=== PATIENT | female | born 1990 | race Caucasian/White ===

== ENCOUNTER → 2023-05-28 | Outpatient (CLI) | payer BC, SELFPAY ==
[2023-05-28 11:44] LABS: Vitamin D,25 Hydroxy 28.6 ng/mL
[2023-05-28 14:06] LABS: Cholesterol 212 mg/dL (200); Estradiol 114.7 pg/mL; Glucose 99 mg/dL (74-106); High Density Lipoprotein 66 mg/dL; T4 Free Direct 0.69 ng/dL (0.76-1.46); Thyroid Stim Hormone (TSH) 2.38 uIU/mL (0.358-3.74); Triglycerides 79 mg/dL; Very Low Density Lipoprotein 16 mg/dL (5-40)
[2023-05-31 14:07] LABS: Anti-Mullerian Hormone,Serum 5.33 ng/mL (.); Thyroid Peroxidase AB 15 IU/mL (0-34)
[2023-06-02 11:09] LABS: HPV APTIMA, High Risk Positive (Negative)
== END | disposition home or self-care (01) ==
PROVIDERS: Advanced Practice Midwife; Referring Provider Obstetrics & Gynecology; Visit Provider Obstetrics & Gynecology
DX: Z13.220 Encounter for screening for lipoid disorders (principal); Z12.4 Encounter for screening for malignant neoplasm of cervix; N93.9 Abnormal uterine and vaginal bleeding, unspecified; Z12.31 Encounter for screening mammogram for malignant neoplasm of breast; Z13.1 Encounter for screening for diabetes mellitus; Z13.29 Encounter for screening for other suspected endocrine disorder
CPT/HCPCS: 36415; 80061; 82306; 82627; 82670; 82947; 83516; 84439; 84443; 86376; 87624; 88175; 82626; G0145

== ENCOUNTER → 2023-11-17 | Outpatient (CLI) | payer BC, MEDICAID, SELFPAY ==
--- OUTSIDE RECORDS SUMMARY | 2023-11-17 19:34 | XMS RPT_ITS | CCD ---
Author Name Unknown Address [address] [place] [address] Organization [facility] Care Team Providers Care Budget Director Name Role Phone SUSY SOLER Attending Unavailabl e GLENN LANDA Referring Unavail able GLENN LANDA Admitting Unavail able Sheridan Sauer MD [facility] Provide r Sheridan Sauer MD [facility] Provide r Sheridan Sauer MD Unavailable [phone] Sheridan Sauer Unavailable [place], Kathryn Unavailable Unavailable Sheridan Sauer MD [facility] Provide r SHERIDAN SAUER [facility] Unavail able BOBO RIVERA Attending Unavailab SHERIDAN Hopkins [facility] Unavail able BOBO RIVERA Attending Unavailab Sheridan Hopkins MD Maynor [facility] Provide r Kimberly Howard Unavailable Unavailable Sheridan Sauer MD Unavailable [phone] Feli Field, Dr. Schuylre Avila Attending Stephanie shaynailable Feli Field, Dr. Schuyler Avila Referring Stephanie shaynailable Feli Field, Dr. Schuyler Avila Admitting Stephanie vailable Kimberly Howard Attending Unavailable SHERIDAN SAUER Primary Care Unavail able BRODY BILLY Attending Unavailable SHERIDAN SAUER Primary Care Unavail able SHERIDAN SAUER Admitting Unavail able SHERIDAN SAUER Attending Unavail able SHERIDAN SAUER Primary Care Unavail able SHERIDAN SAUER Primary Care Unavail able DEANA CASAS Attending Unavailable Medications Current Medications Medication Drug Class(es) Dates Sig (Normalized) Sig (Original) [id number] 200 actuat albuterol 0.09 mg/actuat metered dose inhaler (9 sources) beta2-Adrenergic Agonist Start: 08-29-2022 End: 09-07-2022 take 2 puff(s) by inhalation every four hours as needed for wheezing albuterol 90 mcg/inh inhalation aerosol ; 2 puff(s) inhaled every 4 hours, As Needed for wheezing or shortness of breath Quantity: 1 Refills: 0 Ordered: 29-Aug-2022 Kimberly Howard Start: 29-Aug-2022 End: 07-Sep-2022 Generic Substitution Allowed Comments: For inhalation only.It is very important that you take or use this exactly as directed. Do not skip doses or discontinue unless directed by your doctor.Obtain medical advice before taking any non-prescription drugs as some may affect the action of this medication.Shake well before use. Completed/Discontinued Medications Medication Drug Class(es) Dates Sig (Normalized) Sig (Original) levonorgestrel 0.776545 mg/hr intrauterine system (5 sources) Progestin, Progestin-containing Intrauterine Device End: 11-06-2021 levonorgestreL (MIRENA) 20 mcg/24 hours (6 yrs) 52 mg IUD 1 each by Intrauterine route once . 0 11/06/2021 Discontinued (Patient's Request) phentermine hydrochloride 37.5 mg oral tablet (4 sources) Sympathomimetic Amine Anorectic Start: 05-08-2022 End: 07-03-2023 take 1 tablet by mouth once daily phentermine (ADIPEX-P) 37.5 mg tablet Take 1 (one) tablet (37.5 mg total) by mouth daily . 0 05/08/2022 07/03/2023 Discontinued (Therapy completed) Problems Active Problems Problem Classification Problem Date Documented Da te Episodic/Chronic Acute and chronic tonsillitis (4 sources) Hypertrophy of tonsils with hypertrophy of adenoids; Translations: [Chronic tonsillitis and adenoiditis] Onset: 02-25-2023 Chronic Anxiety disorders (16 sources) Anxiety; Translations: [Anxiety disorder, unspecified] Onset: 04-03-2021 Chronic Coagulation and hemorrhagic disorders (11 sources) Homozygous Factor V Leiden mutation; Translations: [Activated protein C resistance] Onset: 06-29-2013 04-03-2021 Chronic Contraceptive and procreative management (2 sources) Patient encounter status; Translations: [Encounter for removal of intrauterine contraceptive device] Episodic Female infertility (1 source) Anovulation; Translations: [Female infertility associated with anovulation] Chronic Menstrual disorders (1 source) Irregular periods; Translations: [Irregular menstruation, unspecified] Chronic Mood disorders (16 sources) Recurrent major depressive episodes, mild ; Translations: [Major depressive disorder, recurrent, mild] Onset: 04-03-2021 Chronic Other upper respiratory disease (2 sources) Nasal congestion; Translations: [Other disease of nasal cavity and sinuses] 08-29-2022 Episodic Phlebitis; thrombophlebitis and thromboembolism (5 sources) Acute embolism and thrombosis of left peroneal vein; Translations: [Acute venous embolism and thrombosis of deep vessels of distal lower extremity] Onset: 03-02-2023 Episodic Residual codes; unclassified (1 source) History of clinical finding in subject; Translations: [Personal history of other specified conditions] 07-03-2023 Episodic Unclassified (2 sources) FEVER AND SORE THROAT 10-03-2021 Past or Other Problems Problem Classification Problem Date Documented Da te Episodic/Chronic Fever of unknown origin (1 source) Fever, unspecified; Translations: [Fever, unspecified] Onset: 08-29-2022 Episodic Other upper respiratory disease (1 source) Nasal congestion; Translations: [Nasal congestion] Onset: 08-29-2022 Episodic Other upper respiratory infections (3 sources) Viral upper respiratory tract infection; Translations: [Acute upper respiratory infections of unspecified site] Onset: 08-29-2022 10-03-2021 Episodic Screening and history of mental health and substance abuse codes (1 source) Personal history of nicotine dependence; Translations: [Personal history of nicotine dependence] Onset: 08-29-2022 Episodic Results Test Name Value Interpretation Reference Range Facil ity Vital Signs Date Time Vital Sign Value Performing Clinician Facility 07-03-2023 09:43-0400 Body height 162.6 cm Sheridan Sauer MD Work Phone: [facility] 07-03-2023 09:43-0400 Body mass index (BMI) [Ratio] 40.1 kg/m2 Sheridan Sauer MD Work Phone: [facility] 07-03-2023 09:43-0400 Body temperature 98.71 [degF] Sheridan Sauer MD Work Phone: [facility] 07-03-2023 09:43-0400 Body weight 105.96 kg Sheridan Sauer MD Work Phone: [facility] 07-03-2023 09:43-0400 Diastolic blood pressure 82 mm[Hg] Sheridan Sauer MD Work Phone: [facility] 07-03-2023 09:43-0400 Heart rate 73 /min Sheridan Sauer MD Work Phone: [facility] 07-03-2023 09:43-0400 Respiratory rate 16 /min Sheridan Sauer MD Work Phone: [facility] 07-03-2023 09:43-0400 SaO2% (BldA) [Mass fraction] 97 % Sheridan Sauer MD Work Phone: [facility] 07-03-2023 09:43-0400 Systolic blood pressure 121 mm[Hg] Sheridan Sauer MD Work Phone: [facility] 08-29-2022 12:17-0500 Body height 162 cm Sheridan Sauer Other Phone: [facility] 08-29-2022 12:17-0500 Body temperature 98.06 [degF] Sheridan Sauer Other Phone: [facility] 08-29-2022 12:17-0500 Diastolic blood pressure 81 mm[Hg] Sheridan Sauer Other Phone: [facility] 08-29-2022 12:17-0500 Heart rate 100 /min Sheridan Sauer Other Phone: [facility] 08-29-2022 12:17-0500 Respiratory rate 18 /min Sheridan Sauer Other Phone: [facility] 08-29-2022 12:17-0500 SaO2% (BldA) [Mass fraction] 96 % Sheridan Sauer Other Phone: [facility] 08-29-2022 12:17-0500 Systolic blood pressure 115 mm[Hg] Sheridna Sauer Other Phone: [facility] 11-06-2021 15:05-0500 Body mass index (BMI) [Ratio] 39.01 kg/m2 Raghavendra Talley MD Work Phone: [facility] 11-06-2021 15:05-0500 Body weight 99.88 kg Raghavendra Talley MD Work Phone: [facility] 11-06-2021 15:05-0500 Diastolic blood pressure 81 mm[Hg] Raghavendra Talley MD Work Phone: [facility] 11-06-2021 15:05-0500 Heart rate 71 /min Raghavendra Talley MD Work Phone: [facility] 11-06-2021 15:05-0500 Systolic blood pressure 124 mm[Hg] Raghavendra Talley MD Work Phone: [facility] 10-03-2021 16:04-0500 Body height 160 cm Sheridan Sauer Other Phone: [facility] 10-03-2021 16:04-0500 Body temperature 98.6 [degF] Sheridan Sauer Other Phone: [facility] 10-03-2021 16:04-0500 Diastolic blood pressure 84 mm[Hg] Sheridan Sauer Other Phone: [facility] 10-03-2021 16:04-0500 Heart rate 80 /min Sheridan Sauer Other Phone: [facility] 10-03-2021 16:04-0500 Respiratory rate 14 /min Sheridan Sauer Other Phone: [facility] 10-03-2021 16:04-0500 SaO2% (BldA) [Mass fraction] 98 % Sheridan Sauer Other Phone: [facility] 10-03-2021 16:04-0500 Systolic blood pressure 133 mm[Hg] Sheridan Sauer Other Phone: [facility] 05-28-2021 10:24-0400 Body mass index (BMI) [Ratio] 36.24 kg/m2 Raghavendra Talley MD Work Phone: [facility] 05-28-2021 10:24-0400 Body weight 92.81 kg Raghavendra Talley MD Work Phone: [facility] 05-28-2021 10:24-0400 Diastolic blood pressure 86 mm[Hg] Raghavendra Talley MD Work Phone: [facility] 05-28-2021 10:24-0400 Heart rate 88 /min Raghavendra Talley MD Work Phone: [facility] 05-28-2021 10:24-0400 Systolic blood pressure 136 mm[Hg] aRghavendra Talley MD Work Phone: [facility] 04-03-2021 13:51-0400 Body height 160 cm Sheridan Sauer MD Work Phone: [facility] 04-03-2021 13:51-0400 Body mass index (BMI) [Ratio] 37.55 kg/m2 Sheridan Sauer MD Work Phone: [facility] 04-03-2021 13:51-0400 Body temperature 97.7 [degF] Sheridan Sauer MD Work Phone: [facility] 04-03-2021 13:51-0400 Body weight 96.16 kg Sheridan Sauer MD Work Phone: [facility] 04-03-2021 13:51-0400 Diastolic blood pressure 85 mm[Hg] Sheridan Sauer MD Work Phone: [facility] 04-03-2021 13:51-0400 Heart rate 64 /min Sheridan Sauer MD Work Phone: [facility] 04-03-2021 13:51-0400 Respiratory rate 16 /min Sheridan Sauer MD Work Phone: [facility] 04-03-2021 13:51-0400 SaO2% (BldA) [Mass fraction] 98 % Sheridan Sauer MD Work Phone: [facility] 04-03-2021 13:51-0400 Systolic blood pressure 124 mm[Hg] Sheridan Sauer MD Work Phone: [facility] Encounters Encounter Date Encounter Type Care Provider Facility Start: 07-03-2023 End: 07-03-2023 Patient encounter status Sheridan Sauer MD Work Phone: [facility] Work Phone: Start: 07-03-2023 End: 07-03-2023 Periodic preventive med est patient 18-39 yrs Sheridan Sauer MD Work Phone: [facility] Procedures Date Procedure Procedure Detail Performing Clinician Start: 05-28-2021 Removal of intrauter ine device Raghavendra Talley MD Work Phone: Plan of Treatment Date Care Activity Detail Author Start: 2056 Pneumococcal Vaccine: Ped or At-Risk (2 of 2 - PPSV23) Pneumococcal Vaccine: Ped or At-Risk (2 of 2 - PPSV23) [facility] Start: 08-02-2025 Tetanus vaccination Tetanus: Every 10yrs [facility] Start: 07-03-2024 History and physical examination, annual for health maintenance Wellness Visit [facility] Start: 07-03-2023 End: 07-03-2023 Patient encounter procedure 07/03/2023 9:45 AM EDT Office Visit [facility] [address] [place] [address] Sheridan Sauer MD [address] [address] [facility] Start: 05-22-2023 Influenza vaccination Sequential Influenza Vaccine (#1) [facility] Start: 05-16-2023 History and physical examination, annual for health maintenance Wellness Visit [facility] Start: 05-22-2022 Influenza vaccination [facility] Start: 04-03-2022 History and physical examination, annual for health maintenance Wellness Visit [facility] Start: 03-28-2022 End: 03-28-2022 Patient encounter procedure 03/28/2022 Office Visit Primary Care Sheridan Sauer MD [address] [address] [facility] Start: 02-01-2022 Depression Remission Assessment (PHQ9) Depression Remission Assessment (PHQ9) [facility] Start: 05-22-2021 Influenza vaccination Sequential Influenza Vaccine (#1) [facility] Start: 03-19-2018 Pneumococcal Vaccine: Ped or At-Risk (2 - PCV) Pneumococcal Vaccine: Ped or At-Risk (2 - PCV) [facility] Start: 2012 Screening for malignant neoplasm of cervix Pap Smear [facility] Start: 2009 Hepatitis C screening Hepatitis C Screening [facility] Start: 2006 HIV screening HIV Screening [facility] Start: 2003 COVID-19 Vaccine (1) COVID-19 Vaccine (1) [facility] Start: 1996 COVID-19 Vaccine (#1) COVID-19 Vaccine (#1) [facility] Start: 1996 COVID-19 Vaccine (1) COVID-19 Vaccine (1) [facility] Start: 01-07-1992 COVID-19 Vaccine (#1) COVID-19 Vaccine (#1) [facility] Start: 1991 Screening for malignant neoplasm of cervix Pap Smear [facility] End: 08-12-2023 Glucose [Mass/volume] in Serum or Plasma Glucose Lab Routine Routine medical exam 1 Occurrences starting 08/12/2022 until 08/12/2023 [facility] Immunizations Immunization Date Immunization Notes Care Provider Linh peace 08-21-2020 influenza, injectabl e, quadrivalent, preservative free Sheridan Sauer MD Work Phone: [facility] 06-16-2019 Influenza, injectabl e, Madin Madison Canine Kidney, preservative free, quadrivalent Sheridan Sauer MD Work Phone: [facility] 06-29-2018 influenza, injectabl e, quadrivalent, contains preservative Sheridan Sauer MD Work Phone: [facility] 03-19-2017 pneumococcal polysac charide vaccine, 23 valent Sheridan Sauer MD Work Phone: [facility] 08-02-2015 tetanus toxoid, redu fatuma diphtheria toxoid, and acellular pertussis vaccine, adsorbed Sheridan Sauer MD Work Phone: [facility] 07-10-2015 influenza, injectabl e, quadrivalent, contains preservative Sheridan Sauer MD Work Phone: [facility] 03-31-2014 tetanus toxoid, redu fatuma diphtheria toxoid, and acellular pertussis vaccine, adsorbed Sheridan Sauer MD Work Phone: [facility] 06-22-2012 varicella virus vaccine Elaine Sauer MD Work Phone: [facility] 05-14-2012 varicella virus vaccine Elaine Sauer MD Work Phone: [facility] 05-12-2012 influenza virus vacc ine, whole virus Sheridan Sauer MD Work Phone: [facility] 10-05-2007 tetanus toxoid, redu fatuma diphtheria toxoid, and acellular pertussis vaccine, adsorbed Sheridan Sauer MD Work Phone: [facility] 08-19-2002 TD(adult) unspecifie d formulation Sheridan Sauer MD Work Phone: [facility] 07-26-1997 measles, mumps and r ubella virus vaccine Sheridan Sauer MD Work Phone: [facility] 08-17-1996 diphtheria, tetanus toxoids and acellular pertussis vaccine Sheridan Sauer MD Work Phone: [facility] 08-17-1996 diphtheria, tetanus toxoids and acellular pertussis vaccine, unspecified formulation Sheridan Sauer MD Work Phone: [facility] 08-17-1996 poliovirus vaccine, unspecified formulation Sheridan Sauer MD Work Phone: [facility] 01-24-1994 hepatitis B vaccine, pediatric or pediatric/adolescent dosage Sheridan Sauer MD Work Phone: [facility] 08-28-1993 hepatitis B vaccine, pediatric or pediatric/adolescent dosage Sheridan Sauer MD Work Phone: [facility] 07-24-1993 hepatitis B vaccine, pediatric or pediatric/adolescent dosage Sheridan Sauer MD Work Phone: [facility] 01-23-1993 diphtheria, tetanus toxoids and acellular pertussis vaccine Sheridan Sauer MD Work Phone: [facility] 01-23-1993 diphtheria, tetanus toxoids and acellular pertussis vaccine, unspecified formulation Sheridan Sauer MD Work Phone: [facility] 01-23-1993 poliovirus vaccine, unspecified formulation Sheridan Sauer MD Work Phone: [facility] 10-13-1992 haemophilus influenz ae type b vaccine, conjugate unspecified formulation Sheridan Sauer MD Work Phone: [facility] 10-13-1992 measles, mumps and r ubella virus vaccine Sheridan Sauer MD Work Phone: [facility] 02-22-1992 diphtheria, tetanus toxoids and acellular pertussis vaccine Sheridan Sauer MD Work Phone: [facility] 02-22-1992 diphtheria, tetanus toxoids and acellular pertussis vaccine, unspecified formulation Sheridan Sauer MD Work Phone: [facility] 02-22-1992 haemophilus influenz ae type b vaccine, conjugate unspecified formulation Sheridan Sauer MD Work Phone: [facility] 1991 diphtheria, tetanus toxoids and acellular pertussis vaccine Sheridan Sauer MD Work Phone: [facility] 1991 diphtheria, tetanus toxoids and acellular pertussis vaccine, unspecified formulation Sheridan Sauer MD Work Phone: [facility] 1991 haemophilus influenz ae type b vaccine, conjugate unspecified formulation Sheridan Sauer MD Work Phone: [facility] 1991 poliovirus vaccine, unspecified formulation Sheridan Sauer MD Work Phone: [facility] 1991 diphtheria, tetanus toxoids and acellular pertussis vaccine Sheridan Sauer MD Work Phone: [facility] 1991 diphtheria, tetanus toxoids and acellular pertussis vaccine, unspecified formulation Sheridan Sauer MD Work Phone: [facility] 1991 haemophilus influenz ae type b vaccine, conjugate unspecified formulation Sheridan Sauer MD Work Phone: [facility] 1991 poliovirus vaccine, unspecified formulation Sheridan Sauer MD Work Phone: [facility] Payers Date Payer Category Payer Unknown [id number] 2020 Unknown [id number] 2020 Unknown 2020 Unknown [id number] 2019 Medicaid [employer] [place] [id number] 2019-Present [phone] [address] [address] [place] [address] [id number] 2019 Medicaid [id number] 1991 Unknown [id number] 1991 Unknown [id number] 1991 Unknown [id number] 1991 Unknown [id number] 1991 Unknown [id number] 1991 Unknown [id number] 1991 Unknown [id number] 1991 Unknown [id number] Social History Date Type Detail Facility Start: 09-21-2015 End: 02-25-2022 Tobacco smoking status UTIS Current some day smoker [facility] Start: 09-21-2015 History of tobacco use Cigarette Smoker [facility] Start: 04-03-2021 End: 02-25-2022 Tobacco use and exposure Never used [facility] Start: 04-03-2021 End: 03-02-2023 Alcohol intake Current drinker of alcohol (finding) [facility] Start: 04-03-2021 End: 07-03-2023 Alcohol intake [facility] Start: 04-03-2021 Alcohol Comment socially [facility] Start: 1991 Sex Assigned At Not on file [facility] Start: 02-16-2022 End: 02-26-2022 Exposure to SARS-CoV-2 (event) Not sure [facility] Tobacco smoking consumption unknown [facility] Start: 04-03-2021 End: 03-02-2023 Tobacco use panel [facility] Adult Depression Screening Assessment 19 [facility] Start: 04-03-2021 Gender identity Identifies as female gender (finding) [facility] Start: 04-03-2021 Sexual orientation Heterosexual (finding) [facility] Clinical Notes 12-05-2020 to 07-03-2023 Sheridan Sauer MD - 07/03/2023 10:07 AM Samira Talley MD - 11/06/2021 6:14 PM Vicente Talley MD - 05/28/2021 1:35 PM Samira Talley MD - 05/28/2021 1:32 PM EDT Note Date & Type Note Facility 07-03-2023 History of Present illness Narrative Images from the original note were not included. Subjective Patient ID: Lorri Chiu is a 32 y.o. female. 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 Review of Systems Constitutional: Negative for chills, diaphoresis and fever. HENT: Negative for congestion and sinus pain. Eyes: Negative for redness. Respiratory: Negative for cough, shortness of breath and wheezing. Cardiovascular: Negative for chest pain. Gastrointestinal: Negative for diarrhea, nausea and vomiting. Endocrine: Negative for polydipsia. Genitourinary: Negative for frequency and hematuria. Musculoskeletal: Negative for back pain. Neurological: Negative for weakness and headaches. Psychiatric/Behavioral: Negative for confusion. Objective Physical Exam Vitals reviewed. Constitutional: General: She is awake. Appearance: Normal appearance. She is well-developed. HENT: Head: Normocephalic and atraumatic. Right Ear: Tympanic membrane and ear canal normal. Left Ear: Tympanic membrane and ear canal normal. Nose: Nose normal. Eyes: General: Lids are normal. Extraocular Movements: Extraocular movements intact. Pupils: Pupils are equal, round, and reactive to light. Cardiovascular: Rate and Rhythm: Normal rate and regular rhythm. Heart sounds: S1 normal and S2 normal. No murmur heard. No friction rub. No gallop. Pulmonary: Effort: Pulmonary effort is normal. No tachypnea. Breath sounds: Normal breath sounds. No stridor or decreased air movement. No wheezing, rhonchi or rales. Neurological: Mental Status: She is alert. Gait: Gait is intact. Psychiatric: Behavior: Behavior is cooperative. Assessment/Plan: Diagnoses and all orders for this visit: Routine medical exam Patient is up-to-date on labs no need for repeat at this time TSH normal free T4 just mildly low would not do any treatments at this time Anxiety - citalopram (CELEXA) 40 MG tablet; Take 1 (one) tablet (40 mg total) by mouth daily . - buPROPion (WELLBUTRIN XL) 150 MG 24 hr tablet; Take 1 (one) tablet (150 mg total) by mouth daily . Mild episode of recurrent major depressive disorder (HCC) - citalopram (CELEXA) 40 MG tablet; Take 1 (one) tablet (40 mg total) by mouth daily . - buPROPion (WELLBUTRIN XL) 150 MG 24 hr tablet; Take 1 (one) tablet (150 mg total) by mouth daily . Acute deep vein thrombosis (DVT) of left peroneal vein (HCC) - apixaban (Eliquis) 5 mg Tab; Take 1 (one) tablet (5 mg total) by mouth 2 (two) times a day . H/O motion sickness - scopolamine (TRANSDERM-SCOP) 1 mg over 3 days patch; Place 1 (one) patch on the skin every 72 hours for 6 days . Sheridan Sauer M.D. For any new medications prescribed today, patient was educated about indications for the medication, how to take the medication and potential side effects of the medications. documented in this encounter [facility] 02-25-2023 Note PROCEDURE DETAILS Preoperative Diagnosis: Tonsillitis and adenoiditis, chronic, J35.03 Hyperplasia of tonsils and adenoids, J35.3 Postoperative Diagnosis: Tonsillitis and adenoiditis, chronic, J35.03 Hyperplasia of tonsils and adenoids, J35.3 Surgeon: Schuyler Edmond Resident/Fellow/Other Analyzer Sales: None of these were associated with this case Procedure: 1. T&A Anesthesia: No anesthesiologist associated with this case Estimated Blood Loss: minimal Findings: Severe hypertrophy Operative Report: CLINICAL NOTE:The patient is a 32-year-old female with a history of with a history of chronic adenotonsillitis and adenotonsillar hypertrophy. OPERATIVE NOTE: The patient was taken to the operating room and placed supine on the operating room table and after administration of general endotracheal anesthesia, the table was turned 90 degrees, head drape was applied and the McIvor mouth gag was inserted and suspended from the Garvey stand. A red rubber catheter was placed through the nose and out the oral cavity to suspend a normal palate. A large adenoid pad was removed from the nasopharynx using curettes and Woodbury forceps and the nasopharynx was packed with Bismuth subgallate epinephrine soaked packs. Attention was then directed to the tonsillectomy and the right tonsil was grasped at its superior pole and medialized. A mucosal incision was made with the Coblation wand and the tonsillar capsule was identified. The tonsil was removed along the capsular plane and Bismuth was smeared into the tonsillar fossa. The nasopharyngeal packs were replaced. Attention was then directed to the opposite tonsil. The procedure was repeated in an identical fashion with identical clinical findings. The nasopharyngeal packs were removed and hemostasis was found to have been achieved. The nasopharynx and oral cavity were then irrigated with normal saline. The patient was then reversed from anesthesia, extubated, and transferred to the recovery room (PACU) in satisfactory condition. The patient tolerated the procedure well with minimal blood loss. Attestation: Note Completion: Attending AttestationI performed the procedure without a resident Electronic Signatures: Schuyler Edmond) (Signed 25-Feb-2023 14:35) Authored: Post-Operative Note, Chart Review, Note Completion Last Updated: 25-Feb-2023 14:35 by Schuyler Edmond) [facility] 02-25-2023 Note History & Physical R eviewed: /Lactating: Are You no Are You Currently Breastfeedingno I have reviewed the History and Physical dated: 19-Feb-2023 History and Physical reviewed and relevant findings noted. Patient examined to review pertinent physical findings.: No significant changes Home Medications Reviewed: no changes noted Allergies Reviewed: no changes noted ERAS (Enhanced Recovery After Surgery): ERAS Patient: no Consent: COVID-19 Consent: COVID-19 Risk ConsentSurgeon has reviewed chase risks related to the risk of memo COVID-19 and if they contract COVID-19 what the risks are. Electronic Signatures: Schuyler Edmond) (Signed 25-Feb-2023 13:26) Authored: History & Physical Reviewed, ERAS, Consent, Note Completion Last Updated: 25-Feb-2023 13:26 by Schuyler Edmond) [facility] 11-06-2021 History of Present illness Narrative Subjective Patient ID: Lorri Chiu is a 31 y.o. female. Patient here with concerns about fertility. She had her IUD removed in May 2021, her menstrual cycles have been very irregular since the removal. For the first couple of months her cycles were every 23-25 days and the last 2 cycles have been around 40 days apart. She had to be placed on clomid in the past after trying for 4 years without success. She did conceive on clomid. Wants to try clomid again. The following portions of the patient's history were reviewed and updated as appropriate: allergies, current medications, past family history, past medical history, past social history, past surgical history and problem list. Review of Systems Constitutional: Negative for appetite change and fever. HENT: Negative for nosebleeds. Eyes: Negative for photophobia. Respiratory: Negative for cough and shortness of breath. Cardiovascular: Negative for chest pain and leg swelling. Gastrointestinal: Negative for abdominal pain, constipation, diarrhea, nausea and vomiting. Endocrine: Negative for cold intolerance and polydipsia. Genitourinary: Positive for menstrual problem. Negative for difficulty urinating, dysuria, frequency and urgency. Musculoskeletal: Negative for joint swelling. Skin: Negative for rash. Neurological: Negative for dizziness. Hematological: Does not bruise/bleed easily. Psychiatric/Behavioral: Negative for suicidal ideas. All other systems reviewed and are negative. Objective Physical Exam Constitutional: Appearance: She is well-developed. Pulmonary: Effort: Pulmonary effort is normal. Abdominal: Palpations: Abdomen is soft. Musculoskeletal: General: Normal range of motion. Skin: General: Skin is warm and dry. Neurological: Mental Status: She is alert and oriented to person, place, and time. Psychiatric: Behavior: Behavior normal. Thought Content: Thought content normal. Judgment: Judgment normal. Assessment/Plan: Diagnoses and all orders for this visit: Irregular menses We discussed the irregular cycles, variations after having IUD removed. She doesn't have symptoms of ovulation that she has had in the past. We discussed options for regulating her cycles. She wishes to try to conceive, wants to start on clomid to help. Anovulation We reviewed clomid dosing, instructions, and success rates. She was given the clomid calendar and instructions. We will start clomid with her next menses. Instructed on progesterone level to assess ovulation status. Patient understands and agrees. documented in this encounter [facility] 05-28-2021 History of Present illness Narrative Associated Order(s): IUD Removal IUD Removal Date/Time: 05/28/2021 1:35 PM Performed by: Raghavendra Talley MD Authorized by: Raghavendra Talley MD Consent: Consent obtained: Verbal Consent given by: Patient Procedure risks and benefits discussed: yes Patient questions answered: yes Patient agrees, verbalizes understanding, and wants to proceed: yes Instructions and paperwork completed: yes Mastic protocol: Patient states understanding of procedure being performed: yes Relevant documents present and verified: yes Required blood products, implants, devices, and special equipment available: yes Procedure: Removed with no complications: yes Subjective Patient ID: Lorri Chiu is a 30 y.o. female. Here for IUD removal. She has had it in place for about 5 years. She wishes to conceive. The following portions of the patient's history were reviewed and updated as appropriate: allergies, current medications, past family history, past medical history, past social history, past surgical history and problem list. Review of Systems Constitutional: Negative for appetite change and fever. HENT: Negative for nosebleeds. Eyes: Negative for photophobia. Respiratory: Negative for cough and shortness of breath. Cardiovascular: Negative for chest pain and leg swelling. Gastrointestinal: Negative for abdominal pain, constipation, diarrhea, nausea and vomiting. Endocrine: Negative for cold intolerance and polydipsia. Genitourinary: Negative for difficulty urinating, dysuria, frequency and urgency. Musculoskeletal: Negative for joint swelling. Skin: Negative for rash. Neurological: Negative for dizziness. Hematological: Does not bruise/bleed easily. Psychiatric/Behavioral: Negative for suicidal ideas. All other systems reviewed and are negative. Objective Physical Exam Vitals reviewed. Exam conducted with a chief development officer present. Constitutional: Appearance: She is well-developed. Pulmonary: Effort: Pulmonary effort is normal. Abdominal: Palpations: Abdomen is soft. Genitourinary: Comments: IUD strings seen Musculoskeletal: General: Normal range of motion. Skin: General: Skin is warm and dry. Neurological: Mental Status: She is alert and oriented to person, place, and time. Psychiatric: Behavior: Behavior normal. Thought Content: Thought content normal. Judgment: Judgment normal. Assessment/Plan: Diagnoses and all orders for this visit: Encounter for removal of intrauterine contraceptive device (IUD) IUD removed. Discussed return of fertility, when to return if thinks she is . documented in this encounter [facility] 04-03-2021 History of Present illness Narrative Images from the original note were not included. Subjective Patient ID: Lorri Chiu is a 30 y.o. female. Not seen couple of years, bt was Dr. feliz in [place] last Patient here for initial visit overall she is doing well she has new insurance and a new position at [employer] and is here for checkup has not had lab work done in quite some time other than a hemoglobin A1c. She does need to get in with a graphic design specialist as she has a Mirena that does need to be removed She has a history of anxiety and depression was on citalopram and Wellbutrin states that she was taken the twice a day Wellbutrin and sometimes had difficulty with the second dose but would like to try the once a day She does smoke occasionally and is trying to quit The following portions of the patient's history were reviewed and updated as appropriate: allergies, current medications, past family history, past medical history, past social history, past surgical history and problem list. Review of Systems Constitutional: Negative for chills and fever. HENT: Negative for congestion, ear pain, hearing loss, sinus pain and sore throat. Eyes: Negative for pain and redness. Respiratory: Negative for chest tightness and shortness of breath. Cardiovascular: Negative for leg swelling. Gastrointestinal: Negative for abdominal pain, constipation, diarrhea, nausea and vomiting. Endocrine: Negative for polydipsia and polyuria. Genitourinary: Negative for dysuria and hematuria. Musculoskeletal: Negative for joint swelling. Skin: Negative for rash. Neurological: Negative for dizziness, syncope, numbness and headaches. Psychiatric/Behavioral: Negative for confusion and hallucinations. The patient is nervous/anxious. Objective Physical Exam Vitals reviewed. Constitutional: General: She is not in acute distress. Appearance: Normal appearance. HENT: Head: Normocephalic and atraumatic. Right Ear: Tympanic membrane and ear canal normal. Left Ear: Tympanic membrane and ear canal normal. Nose: No congestion or rhinorrhea. Eyes: Extraocular Movements: Extraocular movements intact. Conjunctiva/sclera: Conjunctivae normal. Pupils: Pupils are equal, round, and reactive to light. Cardiovascular: Rate and Rhythm: Normal rate and regular rhythm. Heart sounds: Normal heart sounds. No murmur heard. No friction rub. No gallop. Pulmonary: Effort: No respiratory distress. Breath sounds: Normal breath sounds. No wheezing, rhonchi or rales. Musculoskeletal: Cervical back: Neck supple. No rigidity. Skin: Findings: No rash. Neurological: Mental Status: She is alert. Motor: No weakness. Gait: Gait normal. Psychiatric: Mood and Affect: Mood normal. Assessment/Plan: Diagnoses and all orders for this visit: We are going to check lab work today go ahead and restart medications if symptoms not improving she will let us know we may need to increase Wellbutrin [address] Raghavendra Talley name given for [facility] and [facility] for possible dermatology follow-up she will call us with problems Routine medical exam - Basic Metabolic Panel; Future - CBC and Differential; Future - Hepatic Function Panel; Future - Lipid Panel; Future - TSH; Future Anxiety - citalopram (CELEXA) 20 MG tablet; Take 1 (one) tablet (20 mg total) by mouth daily . - buPROPion (WELLBUTRIN XL) 150 MG 24 hr tablet; Take 1 (one) tablet (150 mg total) by mouth daily . Mild episode of recurrent major depressive disorder (HCC) - citalopram (CELEXA) 20 MG tablet; Take 1 (one) tablet (20 mg total) by mouth daily . - buPROPion (WELLBUTRIN XL) 150 MG 24 hr tablet; Take 1 (one) tablet (150 mg total) by mouth daily . Sheridan Sauer M.D. For any new medications prescribed today, patient was educated about indications for the medication, how to take the medication and potential side effects of the medications. documented in this encounter [facility] 12-05-2020 Note HNO ID: [id number] Author: Miguel Neal Service: ? Author Type: Physician Type: Progress Notes Filed: 12/05/2020 3:59 PM Note Text: ASSESSMENT/PLAN: 1. 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 - Consult [facility] Tadeo at [facility] for updated refraction and glasses, per patient request - Continue to wear contact lenses minimally 3. High myopia, both eyes - ICD9: 367.1, ICD10: H52.13 - Monitor Return to clinic in 1 year for Dilated fundus exam Miguel Neal MD [facility] documented in this encounter [facility] note* Diagnosis Encounter for removal of intrauterine contraceptive device (IUD)- Primary [facility] Diagnosis Anxiety Anxiety state, unspecified Mild episode of recurrent major depressive disorder (HCC) [facility] Diagnosis Anxiety Anxiety state, unspecified Mild episode of recurrent major depressive disorder (HCC) [facility] Diagnosis Irregular menses- Primary Irregular menstrual cycle Anovulation Female infertility associated with anovulation [facility]* Diagnosis Acute deep vein thrombosis (DVT) of left peroneal vein (HCC)- Primary [facility]* Diagnosis Routine medical exam- Primary Routine general medical examination at a health care facility [facility]* Diagnosis Anxiety Anxiety state, unspecified Mild episode of recurrent major depressive disorder (HCC) [facility]* Diagnosis Acute deep vein thrombosis (DVT) of left peroneal vein (HCC) [facility] Diagnosis Routine medical exam- Primary Routine general medical examination at a health care facility Anxiety Anxiety state, unspecified Mild episode of recurrent major depressive disorder (HCC) Acute deep vein thrombosis (DVT) of left peroneal vein (HCC) H/O motion sickness documented in this encounter [facility] Summary Purpose Family History No Family History Records FoundNo Family History Records FoundNo Family History Records FoundNo Family History Records FoundNo Family History Records FoundNo Family History Records FoundNo Family History Records Found Advance Directives Documents on File Type Date Recorded Patient Nutrition Services Manager Expl anation Advance Directives and Living Will Additional Source Comments INFORMATION SOURCE (unrecogn ized section and content) DATE CREATED AUTHOR AUTHOR'S ORGANIZ ATION 11/12/2021 [facility] DATE CREATED AUTHOR AUTHOR'S ORGANIZ ATION 05/15/2022 [facility] DATE CREATED AUTHOR AUTHOR'S ORGANIZ ATION 03/02/2023 [facility] DATE CREATED AUTHOR AUTHOR'S ORGANIZ ATION 03/07/2023 [facility] DATE CREATED AUTHOR AUTHOR'S ORGANIZ ATION 04/02/2023 [facility] DATE CREATED AUTHOR AUTHOR'S ORGANIZ ATION 06/02/2023 [facility] Reason for Visit (unrecogniz ed section and content) Reason Comments other 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 removal 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 Reason Comments Discuss Labs Care Teams (unrecognized sec tion and content) Budget Director Relationship Specialty Start Date End Date Sheridan Sauer MD [address] [place] [address] PCP - General Family Medicine 04/03/21 Budget Director Relationship Specialty Start Date End Date Sheridan Sauer MD [address] [place] [address] PCP - General Family Medicine 04/03/21 Budget Director Relationship Specialty Start Date End Date Sheridan Sauer MD [address] [place] [id number] PCP - General Family Medicine 04/03/21 Budget Director Relationship Specialty Start Date End Date Sheridan Sauer MD [address] [place] [id number] PCP - General Family Medicine 04/03/21 Sheridan Sauer MD [address] [place] [address] PCP - ZAHRA Attributed Provider - [employer] 06/21/22 09/20/50 Budget Director Relationship Specialty Start Date End Date Sheridan Sauer MD [address] [place] [address] PCP - General Family Medicine 04/03/21 Sheridan Sauer MD [address] [place] [id number] PCP - ZAHRA Attributed Provider - [employer] 06/21/22 09/20/50 Budget Director Relationship Specialty Start Date End Date Sheridan Sauer MD [facility] [place] [phone] PCP - General Family Medicine 04/03/21 Sheridan Sauer MD [address] [id number] PCP - ZAHRA Attributed Provider - [employer] 06/21/22 09/20/50 Budget Director Relationship Specialty Start Date End Date Sheridan Sauer MD [address] [address] PCP - General Family Medicine 04/03/21 Sheridan Sauer MD [address] [address] PCP - ZAHRA Attributed Provider - [employer] 06/21/22 09/20/50 <item><item> Privacy Markings (unrecogniz ed section and content) Section Author: Janiya Hackett PROHIBITION ON REDISCLOSURE OF CONFIDENTIAL INFORMATION This notice accompanies a disclosure of information concerning a client made to you with the consent of such client. Section Author: Janiya Hackett PROHIBITION ON REDISCLOSURE OF CONFIDENTIAL INFORMATION This notice accompanies a disclosure of information concerning a client made to you with the consent of such client. FOR RECORDS PERTAINING TO PATIENTS WHO ARE OR HAVE BEEN ENROLLED IN A CHEMICAL DEPENDENCY/SUBSTANCEABUSE PROGRAM, SOME INFORMATION MAY BE OMITTED. This clinical summary was aggregated from multiple sources. Caution should be exercised in using it in the provision of clinical care. This summary normalizes information from multiple sources, and as a consequence, information in this document may materially change the coding, format and clinical context of patient data. In addition, data may be omitted in some cases. CLINICAL DECISIONS SHOULD BE BASED ON THE PRIMARY CLINICAL RECORDS. [facility] [employer] [facility]. provides no warranty or guarantee of the accuracy or completeness of information in this document.
[2023-11-20 10:09] LABS: QNTFERON TB Mitogen Value > 10.00 IU/mL (.); QNTFERON TB Nil Value 0.01 IU/mL (.); QNTFERON TB1+ Ag Value 0.01 IU/mL (.); QNTFERON TB2+ Ag Value 0.02 IU/mL (.); QNTIFERON TB Positive Criteria Negative (Negative)
== END | disposition home or self-care (01) ==
LOC: MTLAB 10:35
PROVIDERS: Referring Provider Physician Assistant Medical; Visit Provider Physician Assistant Medical
DX: L40.0 Psoriasis vulgaris (principal)
CPT/HCPCS: 36415; 86480

== ENCOUNTER → 2024-01-18 | Outpatient (CLI) | payer BC, MEDICAID, SELFPAY ==
--- NOTE | 2024-01-18 | IMM_PTH ---
PATIENT: MIKAELA CODY LOC: [facility] U#:[id number] AGE/SX: 33/F ROOM: RE01/18/[address]: Dr. Martha Kidd DO : 1990 BED: DIS: 01/18/2024 SPEC #: [id number] RECD: 01/20/24 10:51 STATUS: DONITA REQ #: [id number] LETTY: 01/18/24 00:[address]: Martha Kidd DEPT: IMMUNOHISTOCHEMISTRY RECD BY: Stan Manuel ENTERED: 01/20/24 10:52 SP TYPE: IMMUNO OTHR DR: Dr. Ubaldo Sauer MD Tissues: A - Uterine cervix, NOS Procedures: p16 (initial) KI-67 (add) PHYSICIAN & INSTITUTION [place] [phone] SPECIMEN INFORMATION: Tissue Source: A- 10 o'clock biopsy Clinical Info: ASCUS HPV+ Specimen Number: [id number] CPT code: 56719,64181 METHODOLOGY: Deparaffinized sections of prefer/formalin-fixed tissue or PAP/DQ stained slides are incubated with monoclonal/polyclonal antibodies/oligonucleotide probes. Localization is made via biotin free immunoperoxidase method. Appropriate controls are performed and reacted as expected. Results on target cell population are indicated in the following table: RESULTS: ANTIBODY / CLONE RESULT Block A P16 (E6H4) positive, rare cell Ki-67 (30-9) positive, low These tests were developed and their performance characteristics determined by [facility]. They may not have been cleared or approved by the U.S. Food and Drug Administration. The FDA has determined that such clearance or approval is not necessary. The above immunohistochemical/dualISH markers are ordered and reviewed by the Pathologist. INTERPRETATION: A. 10 o'clock, biopsy: Focal HPV change suspected. AM/mr 01/21/24
--- NOTE | 2024-01-18 14:30 | EMB_PTH ---
PATIENT: MIKAELA CODY LOC: [facility]#:[id number] AGE/SX: 33/F ROOM: RE01/18/[address]: Dr. Martha Kidd DO : 1990 BED: DIS: 01/18/2024 SPEC #: [id number] RECD: 01/18/24 15:20 STATUS: DONITA WOODY #: [id number] LETTY: 01/18/24 14:[address]: Martha Kidd DEPT: SURGICAL PATHOLOGY RECD BY: Keiko Jimenez ENTERED: 01/19/24 07:40 SP TYPE: ENDOM BX/C ELLIOTT DR: Dr. Ubaldo Sauer MD Tissues: Endometrium, NOS Procedures: Surgery Specimen Level IV HEADER OPERATION: Colposcopy PRE-OP DIAGNOSIS: ASCUS HPV+ TISSUE SUBMITTED: A- 10 o'clock, B- ECC MICROSCOPIC DIAGNOSIS A. Cervix at 10o'clock, biopsy: Focal HPV change suspected. Fragments of endocervix with acute and chronic inflammation. See comment. B. Cervix, Curettings: Scant strips of benign superficial endocervix. No evidence of dysplasia. / 01/20/2024 COMMENT A. Immunohistochemistry ([id number]) supports the above diagnosis. MICROSCOPIC DESCRIPTION Slides are reviewed. GROSS DESCRIPTION A. Received in fixative is one container labeled with the patient's name and designated 10 o'clock cervix. The specimen consists of two irregular fragments of light montalvo soft tissue that in aggregate measure 0.6 x 0.5 x 0.1 cm. The specimen is totally submitted in one cassette. B. Received in fixative is one container labeled with the patient's name and designated ECC. The specimen consists of multiple irregular fragments of light montalvo soft tissue measuring in aggregate 2.0 x 1.0 x <0.1cm. This specimen is totally submitted in one cassette. / 01/19/2024 TC:3 CPT:87816
[2024-01-18 17:04] LABS: HIV - WCH Non-Reactive (Nonreactive); Hepatitis C Antibody Non-Reactive (Nonreactive); Syphilis Antibodies Non-reactive
[2024-01-20 06:09] LABS: HSV 1 IgG < 0.91 index (0.00-0.90); HSV 2 IgG < 0.91 index (0.00-0.90)
[2024-01-21 07:08] LABS: Chlamydia By Nucleic Acid AMP Negative (Negative); Gonococcus By Nucleic Acid AMP Negative (Negative)
[2024-01-22 16:09] LABS: HPV APTIMA, High Risk Negative (Negative)
== END | disposition home or self-care (01) ==
PROVIDERS: Referring Provider Obstetrics & Gynecology; Visit Provider Obstetrics & Gynecology
DX: Z11.3 Encounter for screening for infections with a predominantly sexual mode of transmission (principal); Z12.4 Encounter for screening for malignant neoplasm of cervix
CPT/HCPCS: 36415; 86695; 86696; 86703; 86780; 86803; 87491; 87591; 87624; 88175; 88305; 88341; 88342; G0145

== ENCOUNTER → 2024-04-12 | Outpatient (CLI) | payer BC, SELFPAY ==
[2024-04-12 12:53] LABS: HIV - WCH Non-Reactive (Nonreactive); Hepatitis B Surface Antibody Reactive; Hepatitis C Antibody Non-Reactive (Nonreactive); Syphilis Antibodies Non-reactive
== END | disposition home or self-care (01) ==
PROVIDERS: Referring Provider Obstetrics & Gynecology; Visit Provider Obstetrics & Gynecology
DX: Z11.3 Encounter for screening for infections with a predominantly sexual mode of transmission (principal)
CPT/HCPCS: 36415; 86703; 86706; 86780; 86803; 87491; 87591

== ENCOUNTER → 2024-10-11 | Outpatient (CLI) | payer BC, SELFPAY ==
[2024-10-15 05:07] LABS: QNTFERON TB Mitogen Value > 10.00 IU/mL (.); QNTFERON TB Nil Value 0.06 IU/mL (.); QNTFERON TB1+ Ag Value 0.03 IU/mL (.); QNTFERON TB2+ Ag Value 0.03 IU/mL (.); QNTIFERON TB Positive Criteria Negative (Negative)
== END | disposition home or self-care (01) ==
PROVIDERS: Referring Provider Physician Assistant; Visit Provider Physician Assistant
DX: L40.0 Psoriasis vulgaris (principal); Z79.899 Other long term (current) drug therapy
CPT/HCPCS: 36415; 86480